=== PATIENT | female | born 1940 | race Two or more races ===

== ENCOUNTER 2018-07-24 14:45 | Outpatient (CLI) | payer OTHER ==
[~2018-07-24 14:45] MED LIST: PROTONIX40 MG PO; TOPROL XL100 M1
== END 2018-07-24 14:49 | disposition home or self-care (01) ==
LOC: RAD 14:45
DX: R10.84 Generalized abdominal pain (principal)

== ENCOUNTER 2018-07-25 09:13 | Outpatient (CLI) | payer OTHER | END 2018-07-25 09:22 | disposition home or self-care (01) | LOC: SONOGRAMA 09:13 → MAMO-SONO 09:15 → SONOGRAMA 09:22 | DX: R10.84 Generalized abdominal pain (principal) ==

== ENCOUNTER → 2019-05-08 10:25 | Outpatient (CLI) | payer OTHER | END | disposition home or self-care (01) | LOC: LAB 10:25 | DX: K29.00 Acute gastritis without bleeding (principal); R10.84 Generalized abdominal pain ==

== ENCOUNTER → 2019-07-01 | Emergency (ER) | payer OTHER ==
[~2019-07-01] VITALS: Ht 162.6 cm; Wt 63.5 kg
== END | disposition left against medical advice (07) ==
LOC: ER 00:25
DX: Z53.20 Procedure and treatment not carried out because of patient's decision for unspecified reasons (principal)

== ENCOUNTER 2019-07-03 09:23 | Outpatient (CLI) | payer OTHER | END 2019-07-03 16:10 | disposition home or self-care (01) | LOC: TOM 09:23 | DX: K57.30 Diverticulosis of large intestine without perforation or abscess without bleeding (principal) | CPT/HCPCS: 74177; Q9965 ==

== ENCOUNTER 2019-07-24 06:40 | Day surgery (SDC) | payer OTHER | END 2019-07-24 12:45 | disposition home or self-care (01) | LOC: AMB-ENDOS 06:40 | DX: D13.1 Benign neoplasm of stomach (principal); D13.2 Benign neoplasm of duodenum; K29.50 Unspecified chronic gastritis without bleeding; K20.8 Other esophagitis; K44.9 Diaphragmatic hernia without obstruction or gangrene; Z12.11 Encounter for screening for malignant neoplasm of colon ==

== ENCOUNTER 2021-11-01 08:00 | Outpatient (CLI) | payer OTHER | END 2021-11-01 08:30 | disposition home or self-care (01) | LOC: PPH VACUNA 08:00 | PROVIDERS: ATTEND Emergency Medicine Pediatric Emergency Medicine | DX: Z23 Encounter for immunization (principal) ==

== ENCOUNTER 2024-01-19 09:08 | Emergency (ER) | payer OTHER ==
[~2024-01-19] VITALS: Ht 162.6 cm; Wt 59.0 kg
[2024-01-19] MEDS ORDERED: hydrOXYzine PAMOATE 50 MG CAPSULE PO ONE (11:30)
== END 2024-01-19 14:04 ==
LOC: ER 09:08
DX: R53.81 Other malaise (principal); G47.00 Insomnia, unspecified; F41.9 Anxiety disorder, unspecified; I10 Essential (primary) hypertension

== ENCOUNTER 2024-07-08 08:36 | Outpatient (CLI) | payer OTHER ==
[2024-07-08 09:49] LABS: HEMATOCRIT 45.4 % (36.0-45.00); MEAN CORPUSCULAR HEMOGLOBIN 28.4 pg (27.00-32.0); MEAN CORPUSCULAR HGB CONC 33.1 g/dl (32.0-36.0); PLATELET COUNT 136 K/uL (150-450); RED BLOOD COUNT 5.28 M/uL (4.00-6.00); RED CELL DISTRIBUTION WIDTH 15.1 % (11.5-14.5)
[2024-07-08 10:20] LABS: INR 1.05; PARTIAL THROMBOPLASTIN TIME 29.3 SECONDS (22.0-34.0); PROTHROMBIN TIME 11.4 SECONDS (9.0-11.5)
[2024-07-08 11:20] LABS: ALBUMIN 3.8 gm/dL (3.4-5.0); BILIRUBIN TOTAL 0.8 mg/dL (0.3-1.2); CALCIUM 9.3 mg/dL (8.5-10.1); CREATININE SERUM 0.6 mg/dL (0.55-1.02); GFR 95.24; GLOBULINA 4.3 G/DL (2.4-3.5); POTASSIUM 3.94 mEq/L (3.5-5.1); TOTAL PROTEIN 8.1 gm/dL (6.4-8.2)
== END 2024-07-08 08:44 | disposition home or self-care (01) ==
LOC: LAB 08:36
PROVIDERS: ATTEND Ophthalmology
DX: D68.8 Other specified coagulation defects (principal); H25.013 Cortical age-related cataract, bilateral; Z01.811 Encounter for preprocedural respiratory examination; I10 Essential (primary) hypertension

== ENCOUNTER 2024-10-30 13:37 | Outpatient (CLI) | payer OTHER ==
[2024-10-30] MEDS ORDERED: ELIQUIS5 MG (16:55)
== END 2024-10-30 13:46 | disposition home or self-care (01) ==
LOC: SONOGRAMA 13:37
PROVIDERS: ATTEND Radiology Diagnostic Radiology
DX: R22.31 Localized swelling, mass and lump, right upper limb (principal)

== ENCOUNTER 2024-10-30 16:46 | Emergency (ER) | payer OTHER ==
[~2024-10-30] VITALS: Ht 165.1 cm; Wt 72.6 kg
[2024-10-30 16:55] VITALS: BP 162/89; O2SAT 99
[2024-10-30] MEDS ORDERED: ELIQUIS5 MG (16:55)
[2024-10-30 18:32] LABS: D DIMER 2.09 MG/L; INR 1.03; PARTIAL THROMBOPLASTIN TIME 30.8 SECONDS (22.0-34.0); PROTHROMBIN TIME 11.2 SECONDS (9.0-11.5)
[2024-10-30 18:35] LABS: ALBUMIN 2.5 gm/dL (3.4-5.0); BILIRUBIN TOTAL 0.59 mg/dL (0.3-1.2); CALCIUM 8.6 mg/dL (8.5-10.1); CREATININE SERUM 0.67 mg/dL (0.55-1.02); GFR 83.65; POTASSIUM 3.71 mEq/L (3.5-5.1); TOTAL PROTEIN 6.5 gm/dL (6.4-8.2)
[2024-10-30 18:41] LABS: HEMATOCRIT 41.2 % (36.0-45.00); HEMOGLOBIN 13.4 g/dL (12.0-15.00); MEAN CELL VOLUME 87.3 fL (80.00-100.00); MEAN CORPUSCULAR HEMOGLOBIN 28.3 pg (27.00-32.0); MEAN CORPUSCULAR HGB CONC 32.5 g/dl (32.0-36.0); PLATELET COUNT 178 K/uL (150-450); RED BLOOD COUNT 4.72 M/uL (4.00-6.00); RED CELL DISTRIBUTION WIDTH 15.1 % (11.5-14.5)
[2024-10-30 19:30] LABS: URINE APPEARANCE Cloudy; URINE BILIRRUBIN Negative (NEGATIVE); URINE BLOOD Small; URINE COLOR Yellow; URINE GLUCOSE Negative (NEGATIVE); URINE KETONE Negative (NEGATIVE); URINE LEUKOCYTE Large; URINE NITRATE Negative; URINE PROTEIN Trace (NEGATIVE)
[2024-10-30 19:34] LABS: URINE EPITHELIAL CELLS 6.8 uL (0.0-38.8); URINE RBC 229.3 uL (0.0-20.8); URINE WBC 812.1 uL (0.0-23.2)
[2024-10-30 19:41] LABS: URINE BACTERIA > 9821.5 uL (0.0-1933); URINE CAST 0.44 uL (0.0-1.40)
[2024-10-30] MEDS ORDERED: CEFTRIAXONE SODIUM 1,000 MG VIAL ONE (20:58)
[2024-10-30] MEDS ORDERED: CEFTRIAXONE SODIUM 1,000 MG VIAL IM ONE (21:00)
[2024-10-31] MEDS ORDERED: ACETAMINOPHEN 500 MG GEL..CAP PO ONE (09:45)
== END 2024-10-31 15:24 | disposition home or self-care (01) ==
LOC: ER 16:46
PROVIDERS: General Practice
DX: D17.21 Benign lipomatous neoplasm of skin and subcutaneous tissue of right arm (principal); I82.409 Acute embolism and thrombosis of unspecified deep veins of unspecified lower extremity; Z20.822 Contact with and (suspected) exposure to COVID-19; I10 Essential (primary) hypertension
CPT/HCPCS: 36415; 73201; 76881; 93971; 96372; 99284; J0696; Q9965